=== PATIENT | female | born 1980 | race Caucasian/White ===

== ENCOUNTER 2017-08-04 20:43 | Emergency (ER) | payer OTHER ==
[~2017-08-04] VITALS: Ht 165.1 cm; Wt 70.3 kg
[~2017-08-04 20:43] MED LIST: BUSP15 PO; Bactrim Ds Tab1 EACH PO; CARB200 PO; CLON.1 PO; CYCL10 PO; DULO60 PO; GABA300 PO; IBUP600 PO; IBUP800 PO; Keflex500 MG PO; LORA1 PO; MELO7.5 PO; METR250; MIRT30 PO; NAPR500; NAPR550 PO; OMEP20ER PO; OXYACE5T PO; OXYACE7.5T PO; OXYC15ER PO; OXYC5 PO; PARO10 PO; PERP2 PO; PERP4 PO; PRAZ2 PO; PROM25 PO; RXCYCL10 PO; RXNAPNA550 PO; RXOXYACE PO; TRAM50 PO
== END 2017-08-05 01:30 | disposition home or self-care (01) ==
LOC: ER 20:43
DX: F15.10 Other stimulant abuse, uncomplicated (principal); F17.210 Nicotine dependence, cigarettes, uncomplicated; Z88.8 Allergy status to other drugs, medicaments and biological substances; Z88.5 Allergy status to narcotic agent
CPT/HCPCS: 99283

== ENCOUNTER 2017-10-06 14:40 | Emergency (ER) | payer OTHER ==
[~2017-10-06] VITALS: Ht 165.1 cm; Wt 74.8 kg
[2017-10-06 15:18] LABS: BASOPHILS ABSOLUTE AUTO 0.04 K/mm3 (0.00-0.23); BASOPHILS PERCENT AUTO 1 % (0-2); EOSINOPHILS ABSOLUTE AUTO 0.06 K/mm3 (0.00-0.68); EOSINOPHILS PERCENT AUTO 1 % (0-6); Hematocrit 37.9 % (33.0-51.0); Hemoglobin 12.5 g/dL (11.5-16.0); IMMATURE GRAN ABSOLUTE AUTO 0.02 K/mm3 (0.00-0.10); IMMATURE GRAN PERCENT AUTO 0 % (0-1); LYMPHOCYTES ABSOLUTE AUTO 2.81 K/mm3 (0.84-5.20); LYMPHOCYTES PERCENT AUTO 38 % (21-46); MONOCYTES ABSOLUTE AUTO 0.59 K/mm3 (0.16-1.47); MONOCYTES PERCENT AUTO 8 % (4-13); Mean Corpuscular HGB 30.2 pg (26.0-34.0); Mean Corpuscular Volume 92 fL (80-100); NEUTROPHILS ABSOLUTE AUTO 3.86 K/mm3 (1.96-9.15); NEUTROPHILS PERCENT AUTO 52 % (41-73); Platelet Count 330 K/mm3 (150-400); RDW Coefficient Variation 12.1 % (11.7-14.2); RDW Standard Deviation 40.5 fL (35.1-46.3); Red Blood Cell Count 4.14 M/mm3 (3.80-5.20); White Blood Cell Count 7.38 K/mm3 (4.00-11.30)
[2017-10-06 16:42] LABS: Specimen Source CERVIX
[2017-10-06 17:11] LABS: Alanine Aminotransfer (ALT/SGP 30 U/L (12-78); Albumin, Blood 3.4 g/dL (3.4-5.0); Albumin/Globulin Ratio 0.9 (0.8-1.8); Alk Phos 71 U/L (50-136); Anion Gap 5 mmol/L (6-16); Aspartate Aminotrans (AST/SGOT 22 U/L (12-37); Bilirubin, Total 0.2 mg/dL (0.1-1.0); Blood Urea Nitrogen 13 mg/dL (8-24); Bun/Creatinine Ratio 17.6 (12.0-20.0); CO2, Blood 29 mmol/L (21-32); Calcium, Blood 8.8 mg/dL (8.5-10.1); Chloride, Blood 107 mmol/L (98-108); Creatinine, Blood 0.74 mg/dL (0.40-1.00); Globulin, Blood 3.8 g/dL (2.2-4.0); Glomerular Filtration Rate >60 (60-); Glucose, Blood 100 mg/dL (70-99); Potassium, Blood 3.9 mmol/L (3.5-5.5); Sodium, Blood 141 mmol/L (136-145); Total Protein, Blood 7.2 g/dL (6.4-8.2)
[2017-10-06 17:46] LABS: Candida species (DNA Probe) Negative (NEGATIVE); G. vaginalis (DNA Probe) Negative (NEGATIVE); T. vaginalis (DNA Probe) Negative (NEGATIVE)
[2017-10-07 10:10] LABS: Source Cervix
== END 2017-10-06 17:24 | disposition home or self-care (01) ==
LOC: ER 14:40
PROVIDERS: Nurse Practitioner Family; Physician Assistant
DX: N93.9 Abnormal uterine and vaginal bleeding, unspecified (principal); F32.9 Major depressive disorder, single episode, unspecified; F17.200 Nicotine dependence, unspecified, uncomplicated; Z88.5 Allergy status to narcotic agent; Z88.8 Allergy status to other drugs, medicaments and biological substances
CPT/HCPCS: 36415; 80053; 81000; 81025; 85025; 87480; 87491; 87510; 87591; 87660; 99284

== ENCOUNTER 2017-11-17 08:35 | Emergency (ER) | payer OTHER ==
[~2017-11-17] VITALS: Ht 165.1 cm; Wt 72.6 kg
[2017-11-17] MEDS ORDERED: MIRT30 PO (09:03)
[2017-11-17] MEDS ORDERED: Kristalose20 GM PO (09:50)
[2017-11-17] MEDS ORDERED: Suppository1 EACH PR (09:58)
[2017-11-17] MEDS ORDERED: Colace250 MG PO (10:13)
== END 2017-11-17 10:17 | disposition home or self-care (01) ==
LOC: ER 08:35
DX: K59.00 Constipation, unspecified (principal); F15.93 Other stimulant use, unspecified with withdrawal; F17.210 Nicotine dependence, cigarettes, uncomplicated; Z88.8 Allergy status to other drugs, medicaments and biological substances; Z88.5 Allergy status to narcotic agent
CPT/HCPCS: 74018; 81000; 81025

== ENCOUNTER 2017-12-29 19:23 | Emergency (ER) | payer OTHER ==
[~2017-12-29] VITALS: Ht 165.1 cm; Wt 79.4 kg
[~2017-12-29 19:23] MED LIST changes: +Colace250 MG PO; +Kristalose20 GM PO; +Suppository1 EACH PR
[2017-12-29] MEDS ORDERED: IBUP800 PO (21:26)
[2017-12-29] MEDS ORDERED: Cleocin HCl150 MG PO (21:26)
== END 2017-12-29 21:58 | disposition home or self-care (01) ==
LOC: ER 19:23
DX: L03.213 Periorbital cellulitis (principal); L03.211 Cellulitis of face; F17.210 Nicotine dependence, cigarettes, uncomplicated; Z88.8 Allergy status to other drugs, medicaments and biological substances; Z88.5 Allergy status to narcotic agent
CPT/HCPCS: 36415; 70487; J1885; J7120; Q9967

== ENCOUNTER 2018-06-08 20:00 | Emergency (ER) | payer SELFPAY ==
[~2018-06-08] VITALS: Ht 165.1 cm; Wt 74.8 kg
[~2018-06-08 20:00] MED LIST changes: +Cleocin HCl150 MG PO
[2018-06-08 20:43] LABS: BASOPHILS ABSOLUTE AUTO 0.02 K/mm3 (0.00-0.23); BASOPHILS PERCENT AUTO 0 % (0-2); EOSINOPHILS ABSOLUTE AUTO 0.03 K/mm3 (0.00-0.68); EOSINOPHILS PERCENT AUTO 0 % (0-6); Hematocrit 38.4 % (33.0-51.0); Hemoglobin 12.8 g/dL (11.5-16.0); IMMATURE GRAN ABSOLUTE AUTO 0.02 K/mm3 (0.00-0.10); IMMATURE GRAN PERCENT AUTO 0 % (0-1); LYMPHOCYTES ABSOLUTE AUTO 1.54 K/mm3 (0.84-5.20); LYMPHOCYTES PERCENT AUTO 21 % (21-46); MONOCYTES PERCENT AUTO 7 % (4-13); Mean Corpuscular HGB 31.5 pg (26.0-34.0); Mean Corpuscular HGB Conc 33.3 g/dL (31.5-36.5); Mean Corpuscular Volume 95 fL (80-100); Mean Platelet Volume 11.2 fL (9.1-12.4); NEUTROPHILS ABSOLUTE AUTO 5.26 K/mm3 (1.96-9.15); NEUTROPHILS PERCENT AUTO 71 % (41-73); Platelet Count 244 K/mm3 (150-400); RDW Coefficient Variation 12.5 % (11.7-14.2); RDW Standard Deviation 43.6 fL (35.1-46.3); Red Blood Cell Count 4.06 M/mm3 (3.80-5.20); White Blood Cell Count 7.37 K/mm3 (4.00-11.30)
[2018-06-08 21:04] LABS: Alanine Aminotransfer (ALT/SGP 24 U/L (12-78); Albumin, Blood 3.4 g/dL (3.4-5.0); Albumin/Globulin Ratio 0.8 (0.8-1.8); Alk Phos 69 U/L (50-136); Anion Gap 10 mmol/L (6-16); Aspartate Aminotrans (AST/SGOT 27 U/L (12-37); Bilirubin, Total 0.3 mg/dL (0.1-1.0); Blood Urea Nitrogen 14 mg/dL (8-24); Bun/Creatinine Ratio 17.1 (12.0-20.0); CO2, Blood 25 mmol/L (21-32); Calcium, Blood 8.4 mg/dL (8.5-10.1); Chloride, Blood 105 mmol/L (98-108); Creatinine, Blood 0.82 mg/dL (0.40-1.00); Glomerular Filtration Rate >60 (60-); Glucose, Blood 83 mg/dL (70-99); Potassium, Blood 3.3 mmol/L (3.5-5.5); Sodium, Blood 140 mmol/L (136-145); Total Protein, Blood 7.4 g/dL (6.4-8.2); Troponin I <0.015 ng/mL (0.000-0.040)
[2018-06-08] MEDS ORDERED: PROM25 PO (22:15)
[2018-06-08] MEDS ORDERED: OMEPRAZOLE MAGN20 MG PO (22:15)
== END 2018-06-08 22:32 | disposition home or self-care (01) ==
LOC: ER 20:00
PROVIDERS: Emergency Medicine
DX: R07.9 Chest pain, unspecified (principal); F15.10 Other stimulant abuse, uncomplicated; R06.00 Dyspnea, unspecified; K21.9 Gastro-esophageal reflux disease without esophagitis; F32.9 Major depressive disorder, single episode, unspecified; F17.210 Nicotine dependence, cigarettes, uncomplicated; Z88.8 Allergy status to other drugs, medicaments and biological substances; Z88.5 Allergy status to narcotic agent; Z79.899 Other long term (current) drug therapy
CPT/HCPCS: 36415; 71046; 80053; 83690; 84484; 85025; 85379; 93005; 93010; 96361; 96374; 96376; 99285-25; J2060; J7030

== ENCOUNTER 2023-02-19 23:23 | Inpatient (IN) | payer SELFPAY ==
[~2023-02-19] VITALS: Ht 165.1 cm; Wt 78.6 kg
[~2023-02-19 23:23] MED LIST changes: +OMEPRAZOLE MAGN20 MG PO
[2023-02-20 02:27] LABS: BASOPHILS ABSOLUTE AUTO 0.03 K/mm3 (0.00-0.23); BASOPHILS PERCENT AUTO 0 % (0-2); EOSINOPHILS PERCENT AUTO 0 % (0-6); Hemoglobin 14.1 g/dL (11.5-16.0); IMMATURE GRAN PERCENT AUTO 1 % (0-1); LYMPHOCYTES ABSOLUTE AUTO 0.91 K/mm3 (0.84-5.20); LYMPHOCYTES PERCENT AUTO 9 % (21-46); MONOCYTES ABSOLUTE AUTO 0.39 K/mm3 (0.16-1.47); MONOCYTES PERCENT AUTO 4 % (4-13); Mean Corpuscular HGB 30.9 pg (26.0-34.0); Mean Corpuscular HGB Conc 36.2 g/dL (31.5-36.5); Mean Corpuscular Volume 86 fL (80-100); Mean Platelet Volume 10.3 fL (9.1-12.4); NEUTROPHILS ABSOLUTE AUTO 8.51 K/mm3 (1.96-9.15); NEUTROPHILS PERCENT AUTO 86 % (41-73); Platelet Count 242 K/mm3 (150-400); RDW Coefficient Variation 12.6 % (11.7-14.2); RDW Standard Deviation 39.4 fL (35.1-46.3); Red Blood Cell Count 4.56 M/mm3 (3.80-5.20); White Blood Cell Count 9.94 K/mm3 (4.00-11.30)
[2023-02-20 02:51] LABS: Albumin, Blood 2.9 g/dL (3.4-5.0); Albumin/Globulin Ratio 0.6 (0.8-1.8); Bilirubin, Total 0.4 mg/dL (0.1-1.0); Bun/Creatinine Ratio 7.6 (12.0-20.0); Calcium, Blood 8.1 mg/dL (8.5-10.1); Creatinine, Blood 0.92 mg/dL (0.40-1.00); Globulin, Blood 4.6 g/dL (2.2-4.0); Potassium, Blood 3.4 mmol/L (3.5-5.5); Total Protein, Blood 7.5 g/dL (6.4-8.2)
[2023-02-20 08:13] VITALS: BP 108/75
[2023-02-20 14:53] VITALS: BP 85/60
--- NOTE | 2023-02-20 18:35 | NUR ---
SHIFT SUMMARY: T MAX 103 DEGREES; TYLENOL GIVEN, DEFERVESCED TO 98.9. ON TELEMETRY, SR-ST 76-130 DEPENDING ON HER TEMP. WAS INCONTINENT OF BOWEL WHILE SLEEPING, HAVING DIARRHEA; PROBIOTIC ORDERED. PT EDUCATED THAT [facility] IS NON SMOKING FACILITY AND SHE CANNOT LEAVE THE UNIT TO SMOKE; NICOTINE PATCH APPLIED. PHOTOS TAKEN OF LUE AND PLACED IN CHART. LUE ERYTHEMA APPEARS A LITTLE IMPROVED ALREADY. DENIED DIZZINESS WHEN GETTING UP TO BR. STILL NEED URINE SPECIMEN.
[2023-02-20 21:14] VITALS: BP 102/68
--- NOTE | 2023-02-21 04:45 | NUR ---
SHIFT SUMMARY 42 YR F ADMITTED ON 02/20/23 FOR LEFT ARM CELLULITIS. FULL CODE. NO ACUTE CHANGES THIS SHIFT. TEMRicci WATSONL. PT STATED THAT SHE REALLY WANTED TO SMOKE A CIGARETTE AND WAS ADVISED, AGAIN, OF THE HOSPIT[facility] NO SMOKING POLICY. SHE AGREED THAT SHE WOULD NOT SMOKE INDOORS. LEONOR IS AT BEDSIDE AND THIS APPEARS TO BRING COMFORT TO HER.
[2023-02-21 05:11] VITALS: BP 97/65
[2023-02-21 05:31] LABS: BASOPHILS ABSOLUTE AUTO 0.02 K/mm3 (0.00-0.23); BASOPHILS PERCENT AUTO 0 % (0-2); EOSINOPHILS PERCENT AUTO 0 % (0-6); Hematocrit 31.1 % (33.0-51.0); Hemoglobin 10.9 g/dL (11.5-16.0); IMMATURE GRAN ABSOLUTE AUTO 0.03 K/mm3 (0.00-0.10); IMMATURE GRAN PERCENT AUTO 1 % (0-1); LYMPHOCYTES ABSOLUTE AUTO 1.04 K/mm3 (0.84-5.20); LYMPHOCYTES PERCENT AUTO 20 % (21-46); MONOCYTES ABSOLUTE AUTO 0.34 K/mm3 (0.16-1.47); MONOCYTES PERCENT AUTO 6 % (4-13); Mean Corpuscular HGB 30.7 pg (26.0-34.0); Mean Corpuscular Volume 88 fL (80-100); Mean Platelet Volume 10.7 fL (9.1-12.4); NEUTROPHILS ABSOLUTE AUTO 3.86 K/mm3 (1.96-9.15); NEUTROPHILS PERCENT AUTO 73 % (41-73); Platelet Count 175 K/mm3 (150-400); RDW Coefficient Variation 12.7 % (11.7-14.2); RDW Standard Deviation 40.9 fL (35.1-46.3); Red Blood Cell Count 3.55 M/mm3 (3.80-5.20); White Blood Cell Count 5.29 K/mm3 (4.00-11.30)
[2023-02-21 06:27] LABS: Alanine Aminotransfer (ALT/SGP 54 U/L (12-78); Albumin, Blood 2.1 g/dL (3.4-5.0); Albumin/Globulin Ratio 0.6 (0.8-1.8); Alk Phos 103 U/L (50-136); Anion Gap 7 mmol/L (6-16); Aspartate Aminotrans (AST/SGOT 52 U/L (12-37); Bilirubin, Total 0.3 mg/dL (0.1-1.0); Blood Urea Nitrogen 4 mg/dL (8-24); Bun/Creatinine Ratio 5.3 (12.0-20.0); CO2, Blood 21 mmol/L (21-32); Calcium, Blood 7.4 mg/dL (8.5-10.1); Chloride, Blood 107 mmol/L (98-108); Creatinine, Blood 0.76 mg/dL (0.40-1.00); Globulin, Blood 3.3 g/dL (2.2-4.0); Glomerular Filtration Rate 102 (60-); Glucose, Blood 161 mg/dL (70-99); Potassium, Blood 3.2 mmol/L (3.5-5.5); Sodium, Blood 135 mmol/L (136-145); Vancomycin, Trough 15.4 ug/mL (5.0-10.0)
[2023-02-21 07:14] LABS: Total Protein, Blood 5.4 g/dL (6.4-8.2)
[2023-02-21 07:45] VITALS: BP 93/59
[2023-02-21 15:35] VITALS: BP 84/62
--- NOTE | 2023-02-21 18:14 | NUR ---
SHIFT SUMMARY: NO ACUTE EVENTS. NO EVENTS ON TELEMETRY, SR 70-90'S. A&O X 4, BUT DOES NOT FOLLOW DIRECTIONS WELL. HAS SLEPT DEEPLY MOST OF THE DAY. MEDICATED WITH TORADOL WITH SOME RELIEF. NO CHANGE IN EDEMA AND ERYTHEMA IN LUE. POTASSIUM REPLACED. STILL HAS NOT GIVEN URINE SPECIMEN; APPARENTLY SHE IS AFRAID OF ADAPT PROGRAM GETTING RESULTS WHICH MAY SHOW A POSITIVE DRUG SCREEN. GETTING UP TO BR INDEPENDENTLY.
[2023-02-21 19:29] VITALS: BP 104/77
[2023-02-22 01:59] VITALS: BP 98/71
--- NOTE | 2023-02-22 04:50 | NUR ---
SHIFT SUMMARY 42 YR F ADMITTED ON 02/20/23 FOR CELLULITIS OF LEFT UPPER ARM. FULL CODE. NO ACUTE CHANGES THIS SHIFT. PT C/O SEVERE HEARTBURN SO ORDER WAS OBTAINED FOR TUMS. PT SLEPT FOR THE REST OF THE NIGHT AFTER THAT. MEDICATED ONCE W/ TORIDOL. PT IS INDEPENDANT TO THE BATHROOM AND HAS BEEN UNCOOPERATIVE WITH GIVING A URINE SAMPLE. HAS BEEN AT BEDSIDE ALL NIGHT.
[2023-02-22 07:24] VITALS: BP 112/82
[2023-02-22 07:47] LABS: Bun/Creatinine Ratio 5.9 (12.0-20.0); Creatinine, Blood 1.35 mg/dL (0.40-1.00); Potassium, Blood 4.2 mmol/L (3.5-5.5)
[2023-02-22 07:56] LABS: Vancomycin, Trough 24.7 ug/mL (5.0-10.0)
[2023-02-22 15:40] VITALS: BP 146/94
--- NOTE | 2023-02-22 17:25 | NUR ---
PT IS A/OX4, PLEASANT AND COOPERATIVE, THE PT IS UP IND. THE PT APPEARS TO BE BREATHING EASILY ON RA AT THIS TIME. THE PT REPORTED PAIN IN HER LEFT ARM BUT DECLINED PAIN MEDICATION SO FAR THIS SHIFT WELL COLD /WARM COMPRESS. THE PT STATED THAT SHE WANTED TO GO HOME TODAY, HOWEVER, AGREED THAT SHE WOULD STAY AT LEAST 1 MORE DAY WHEN TOLD THAT SHE WOULD BE LEAVING AMA. THE PTS AND HER DOG HAVE BEEN AT THE BEDSIDE T/O THE DAY FOR SUPPORT. CALL LIGHT IN REACH. WILL CONTINUE TO MONITOR AND ASSESS FOR CHANGES
[2023-02-22 19:52] VITALS: BP 120/91
--- NOTE | 2023-02-22 20:03 | NUR ---
REFUSING IV/ PHYSICAIN CONTACT PT IV NO LONGER PATENT AND REMOVED. PT UPSET ABOUT THIS. REFUSING FOR NEW IV TO BE PLACED. PT STATES "NO ONE IS POKING ME TONIGHT". NAYAN NOTIFIED OF THIS. ORDER FOR PO LEVOQUIN ORDERED FOR TONIGHT AND THEN DAILY. MELATONIN ALSO ORDERED. PT ACTING AND STATING "I AM AT MY WHITS END AND WANT TO LEAVE". PT AGREEABLE TO STAYING LONG SHE ISNT POKED AGAIN THIS SHIFT.
[2023-02-23 03:35] VITALS: BP 139/84
--- NOTE | 2023-02-23 05:50 | NUR ---
SHIFT SUMMARY IV ACCESS LOST & REFUSED NEW PLACEMENT AT THE START OF SHIFT. SEE PREVIOUS NOTE. SINCE THEN, PT WAS AGREEABLE TO NEW IV PLACEMENT. CABLEMAN WAS SUCCESSFUL WITH THIS. PT THANKFUL FOR BEING LEFT ALONE FOR A PORTION OF THE NIGHT, CARE WAS CLUSTERED. IND IN ROOM. SPOUSE AT BEDSIDE. PT DID REFUSE ANY LABS THIS SHIFT. LABS RETIMED FOR 0800 TODAY. MEDICATED FOR PAIN ONCE THIS SHIFT. NO OTHER ACUTE CHANGES IN ASSESSMENT AT THIS TIME. VS REVIEWED. CALL LIGHT IN REACH. DENIES OTHER NEEDS AT THIS TIME.
[2023-02-23 08:35] VITALS: BP 113/69
[2023-02-23 09:34] LABS: BASOPHILS ABSOLUTE AUTO 0.03 K/mm3 (0.00-0.23); BASOPHILS PERCENT AUTO 1 % (0-2); EOSINOPHILS ABSOLUTE AUTO 0.08 K/mm3 (0.00-0.68); EOSINOPHILS PERCENT AUTO 1 % (0-6); Hematocrit 39.4 % (33.0-51.0); Hemoglobin 13.5 g/dL (11.5-16.0); IMMATURE GRAN ABSOLUTE AUTO 0.06 K/mm3 (0.00-0.10); IMMATURE GRAN PERCENT AUTO 1 % (0-1); LYMPHOCYTES PERCENT AUTO 26 % (21-46); MONOCYTES ABSOLUTE AUTO 0.58 K/mm3 (0.16-1.47); MONOCYTES PERCENT AUTO 9 % (4-13); Mean Corpuscular HGB 30.1 pg (26.0-34.0); Mean Corpuscular HGB Conc 34.3 g/dL (31.5-36.5); Mean Corpuscular Volume 88 fL (80-100); Mean Platelet Volume 10.8 fL (9.1-12.4); NEUTROPHILS PERCENT AUTO 63 % (41-73); Platelet Count 231 K/mm3 (150-400); RDW Coefficient Variation 13.3 % (11.7-14.2); RDW Standard Deviation 43.2 fL (35.1-46.3); Red Blood Cell Count 4.48 M/mm3 (3.80-5.20); White Blood Cell Count 6.55 K/mm3 (4.00-11.30)
[2023-02-23 09:53] LABS: Bun/Creatinine Ratio 7.3 (12.0-20.0); Calcium, Blood 9.8 mg/dL (8.5-10.1); Creatinine, Blood 1.64 mg/dL (0.40-1.00); Potassium, Blood 4.7 mmol/L (3.5-5.5)
--- NOTE | 2023-02-23 14:43 | NUR ---
SHIFT SUMMARY PT RESTING QUIETLY IN BED WITH DOG AND S/O, DURING SHIFT REPORT. PT DOES NOT LIKE TO BE BOTHERED. REFUSING LAB DRAWS AND MEDICATIONS ORDERED. PT REFUSING NEEDED CARE, REFUSED LOVENOX FOR DVT. [facility] PT GOING OUTSIDE FREQUENTLY TO SMOKE, REFUSING NICOTINE PATCH. PT AND S/O EDU ON NO SMKING POLICY, BUT REMAINS NONCOMPLIANT. DR KARIMI NOTIFIED. PT POSSIBLE D/C TODAY. 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 L ARM CELLULITIS WITH REDNESS AND SWELLING; PT RECEIVING IV ABX WHEN IV SITE AVAILABLE. DENIES NEEDS AT THIS TIME. CALL LT IN REACH.
[2023-02-23] MEDS ORDERED: MELATONIN5 M1 PO (15:02)
[2023-02-23] MEDS ORDERED: IBUP400 PO (15:03)
[2023-02-23] MEDS ORDERED: VISBIOME 112.51 EACH PO (15:03)
[2023-02-23] MEDS ORDERED: AMOCLA875 PO (15:03)
--- NOTE | 2023-02-23 18:11 | NUR ---
D/C ORDERS PLACED. MEDS FAXED TO [facility] PER PT REQUEST AND THEN LATER TO [facility] PT CHANGED HER MIND. D/C INSTRUCTIONS REVIEWED WITH PT AND S/O. VERBALIZED UNDERSTANDING. DECLINED ASSISTANCE OUT VIA W/C SHE HAS BEEN INDEPENDENTLY GOING OUT TO SMOKE. BELONGINGS WENT WITH PT.
== END 2023-02-23 15:43 | disposition home or self-care (01) | DRG 872 ==
LOC: ER 23:23 → MEDS 02-20 05:34
PROVIDERS: Internal Medicine; Student in an Organized Health Care Education/Training Program; ADMIT Internal Medicine
DX: A41.9 Sepsis, unspecified organism (principal); L03.114 Cellulitis of left upper limb; E87.1 Hypo-osmolality and hyponatremia; K52.1 Toxic gastroenteritis and colitis; I82.612 Acute embolism and thrombosis of superficial veins of left upper extremity; B95.0 Streptococcus, group A, as the cause of diseases classified elsewhere; L98.499 Non-pressure chronic ulcer of skin of other sites with unspecified severity; F32.A Depression, unspecified; F17.210 Nicotine dependence, cigarettes, uncomplicated; F15.10 Other stimulant abuse, uncomplicated; M54.9 Dorsalgia, unspecified; E87.6 Hypokalemia; G89.29 Other chronic pain; T36.95XA Adverse effect of unspecified systemic antibiotic, initial encounter; Z88.5 Allergy status to narcotic agent; Z88.8 Allergy status to other drugs, medicaments and biological substances; Z98.890 Other specified postprocedural states; Z59.00 Homelessness unspecified
CPT/HCPCS: 36415; 73201; 80048; 80053; 80202; 83605; 83735; 83880; 85025; 87040; 87147; 93306; 93971; 96365; 96366; 96367; 96375; 99285; A9270; J0690; J1650; J1885; J2543; J3370; J3480; J7030; J7050; Q9967